=== PATIENT | female | born 1945 | race Caucasian/White ===

== ENCOUNTER 2025-09-23 08:14 | Emergency (ER) | payer OTHER, SELFPAY ==
[2025-09-23 08:29] VITALS: BP 173/91; PULSE 74; RESP 18; TEMP 36.8; O2SAT 98; BMI 28.8
[2025-09-23 08:43] VITALS: BP 173/91; PULSE 57; O2SAT 98
[2025-09-23 08:59] LABS: Glucose Urine UA Negative (Normal); Nitrate Urine Negative (Negative); Specific Gravity, Urine 1.007 (1.005-1.030)
[2025-09-23 09:04] LABS: Add Urine Microscopic? YES
--- NOTE | 2025-09-23 09:15 | US_ITS ---
WS: [id number] RIGHT UPPER QUADRANT ULTRASOUND HISTORY: RuQ abd pain COMPARISON: None available. Liver: 11.9 cm in length. Normal size liver and echogenicity. No bile duct dilatation or mass. Portal Vein: Normal hepatopetal flow with monophasic waveform. Gallbladder: No distended gallbladder. There is an echogenic focus adjacent and inseparable from the gallbladder. Favor this is probably contents within the duodenal C-loop. No definite stone identified. CBD: 0.3 cm Pancreas: Normal size and echogenicity. Right kidney: 7.3 cm in length. Mild atrophy. No hydronephrosis. Aorta and IVC: Unremarkable abdominal aorta and IVC. No ascites. US/US gall bladder [id number] IMPRESSION: 1. Normally distended gallbladder with no wall thickening or pericholecystic f luid. 2. There is a hyper echoic focus near the gallbladder wall. Favor this is prob ably within the GI tract. If patient's RIGHT upper quadrant pain continues cons ider follow-up gallbladder ultrasound in 3 to 4 weeks. 3. No bile duct dilatation. 4. Mild RIGHT renal atrophy.
[2025-09-23 09:16] LABS: Hematocrit 44.4 % (36-47); Hemoglobin 14.70 g/dL (11.27-16.99); Mean Corpuscular HGB Conc 33.1 g/dL (30-55); Mean Corpuscular Hemoglobin 30.1 pg (27-33); Mean Corpuscular Volume 91.0 fl (85-98); Nucleated Red Blood Cells % 0 %; Platelet Count 274 10^3/cmm (157-399); Red Blood Count 4.88 10^6/uL (3.85-5.65); White Blood Count 6.01 10^3/uL (3.29-11.43)
[2025-09-23] MEDS: morphine 4 mg/mL SDV 1 mL IVP (09:37)
[2025-09-23] MEDS: ondansetron 2 mg/ML SDV 2 mL 4 MG IVP (09:37)
[2025-09-23 09:39] LABS: Alanine Aminotransferase 13 U/L (0-33); Albumin Level 4.1 g/dL (3.5-5.2); Alkaline Phosphatase 97 U/L (35-105); Blood Urea Nitrogen 18 mg/dL (8-23); Calcium 9.0 mg/dL (8.5-10.5); Carbon Dioxide 23 mmol/L (22-29); Chloride 105 mmol/L (98-107); Globulin 2.9 g/dL (1.3-4.6); Glucose 89 mg/dL (65-115); Lipase 38 U/L (13-60); Osmolality Calculated 291 mOsm/kg (285-295); Sodium 140 mmol/L (136-145); Total Protein 7.0 g/dL (6.6-8.7)
[2025-09-23 09:43] LABS: Anion Gap 16.5 (5-19); Aspartate Amino Transferase 24 U/L (0-32); Potassium 4.5 mmol/L (3.5-5.1)
--- NOTE | 2025-09-23 09:52 | W.ED.ABDPA2 ---
HPI - Abdominal Pain General: Chief Complaint: Abdominal Pain Stated Complaint: R Upper ABD Pain Time Seen by Provider: 09/23/25 08:27 History of Present Illness: 79-year-old female who presents to the emergency room complaining of right upper quadrant pain intermittently for the last 2 weeks it is very nauseous but not had any vomiting. No diarrhea no acholic stools no hematemesis coffee-ground emesis. She denies any dysuria urgency or frequency no previous abdominal surgeries. She has not noticed anything that seems to exacerbate it or relieves it Associated Symptoms: Reports nausea; Denies chills, coffee ground emesis, dysuria, fever(s), hematochezia, hematemesis, melena and vomiting Related Data Home Medications ?Medication ?Instructions ?Recorded ?Confirmed flecainide 50 mg tablet 50 mg PO BID 09/23/25 09/23/25 losartan 25 mg tablet 25 mg PO QPM 09/23/25 09/23/25 Previous Rx's ?Medication ?Instructions ?Recorded amoxicillin 875 mg-potassium 1 tab PO BID #14 tabs 09/23/25 clavulanate 125 mg tablet hydrocodone 5 mg-acetaminophen 325 1 tab PO Q6H PRN pain #15 tabs 09/23/25 mg tablet promethazine 25 mg tablet 25 mg PO Q6H PRN nausea and 09/23/25 vomiting #20 tabs Allergies Allergy/AdvReac Type Severity Reaction Status Date / Time No Known Allergies Allergy Verified 09/23/25 08:37 Review of Systems Const: Denies: fever(s) or chills Card: Denies: chest pain Resp: Denies: dyspnea GI: Reports: abdominal pain and nausea; Denies: vomiting, hematemesis, coffee ground emesis, hematochezia or melena : Denies: dysuria, urinary frequency or urinary urgency Musc: Denies: neck pain or back pain Skin/Breast: Denies: rash Physical Exam Const: COMMON NORMALS: no acute distress GENERAL APPEARANCE: cooperative and comfortable ORIENTATION/CONSCIOUSNESS: Yes awake, Yes oriented to person, Yes oriented to place and Yes oriented to time HENMT: COMMON NORMALS: normocephalic, atraumatic and hearing grossly normal bilaterally HEAD & SCALP: normocephalic and atraumatic Resp: COMMON NORMALS: normal respiratory effort, No retractions, No use of accessory muscles and clear to auscultation bilaterally AUSCULTATION: clear to auscultation bilaterally Cardio: COMMON NORMALS: regular rate, regular rhythm and No murmurs present (Cardio) RATE: regular rate RHYTHM: regular rhythm GI: COMMON NORMALS: No hepatosplenomegaly present AUSCULTATION: Yes normoactive bowel sounds PALPATION: Yes Tenderness to palpation present (GI) Details: RUQ, No Guarding due to palpation present (GI) and Yes No hepatosplenomegaly present Extremity: COMMON NORMALS: normal to inspection, capillary refill normal, no clubbing, cyanosis or edema, no calf tenderness and no pedal edema Neuro: SENSORIUM/ORIENTATION: Yes oriented to person, Yes oriented to place and Yes oriented to time Skin: COMMON NORMALS: no rashes or lesions noted GENERAL SKIN EXAM: no rashes or lesions noted Course Vital Signs: Vital signs: Vital Signs Temperature 98.2 F 09/23/25 08:29 Pulse Rate 58 L 09/23/25 11:39 Respiratory Rate 18 09/23/25 08:29 Blood Pressure 144/59 09/23/25 11:39 Pulse Oximetry 97 09/23/25 11:39 Oxygen Delivery Me thod Room Air 09/23/25 10:26 MDM - Abdominal Pain Medical Decision Making Medical decision making Social determinants: None I reviewed the patient's medical record. I reviewed the patient's current home meds. Alternate historians: None Differential diagnosis: Acute cholecystitis, biliary colic, colitis, peptic ulcer disease, pyelonephritis, nephrolithiasis Lab Review: Labs reviewed on the chart CBC normal creatinine mildly elevated liver functions normal Imaging:Cholelithiasis without signs of cholecystitis no significant gallbladder wall no common bile duct dilation Assessment of risk Level of risk: Moderate Hospitalization considerations: No acute cholecystitis not require hospitalization at this time Reexamination: Improved with medications Assessment and plan: Dietary suggestions given to avoid biliary colic. [place] home soon recommend they get the old records contact her primary care doctor for referral to general surgery. If has uncontrolled pain return to the nearest emergency room given hydrocodone and promethazine reviewed dietary suggestions to avoid biliary colic Lab Data 09/23/25 09:08 09/23/25 09:08 Labs/Radiology: Radiology Impressions Gallbladder Ultrasound 09/23/25 09:15 IMPRESSION: 1. Normally distended gallbladder with no wall thickening or pericholecystic fluid. 2. There is a hyper echoic focus near the gallbladder wall. Favor this is probably within the GI tract. If patient's RIGHT upper quadrant pain continues consider follow-up gallbladder ultrasound in 3 to 4 weeks. 3. No bile duct dilatation. 4. Mild RIGHT renal atrophy. Laboratory Results WBC 6.01 10^3/uL (3.29-11.43) 09/23/25 09:08 RBC 4.88 10^6/uL (3.85-5.65) 09/23/25 09:08 Hgb 14.70 g/dL (11.27-16.99) 09/23/25 09:08 Hct 44.4 % (36-47) 09/23/25 09:08 MCV 91.0 fl (85-98) 09/23/25 09:08 MCH 30.1 pg (27-33) 09/23/25 09:08 MCHC 33.1 g/dL (30-55) 09/23/25 09:08 RDW 13.3 % (12.1-15.1) 09/23/25 09:08 Plt Count 274 10^3/cmm (157-399) 09/23/25 09:08 MPV 8.5 fL (7.4-10.4) 09/23/25 09:08 Neut % (Auto) 68.5 % 09/23/25 09:08 Lymph % (Auto) 19.1 % 09/23/25 09:08 Sharkey % (Auto) 8.2 % 09/23/25 09:08 Eos % (Auto) 3.2 % 09/23/25 09:08 Baso % (Auto) 0.8 % 09/23/25 09:08 Neut # (Auto) 4.12 10^3/uL (1.8-7.7) 09/23/25 09:08 Lymph # (Auto) 1.2 10^3/uL (0.8-4.8) 09/23/25 09:08 Sharkey # (Auto) 0.5 10^3/uL (0.2-0.9) 09/23/25 09:08 Eos # (Auto) 0.2 10^3/uL (0.0-0.8) 09/23/25 09:08 Baso # (Auto) 0.1 10^3/uL (0.0-0.1) 09/23/25 09:08 Nucleated RBC % (auto) 0 % 09/23/25 09:08 Nucleated RBCs # 0.0 /100WBC 09/23/25 09:08 Sodium 140 mmol/L (136-145) 09/23/25 09:08 Potassium 4.5 mmol/L (3.5-5.1) 09/23/25 09:08 Chloride 105 mmol/L (98-107) 09/23/25 09:08 Carbon Dioxide 23 mmol/L (22-29) 09/23/25 09:08 Anion Gap 16.5 (5-19) 09/23/25 09:08 BUN 18 mg/dL (8-23) 09/23/25 09:08 Creatinine 1.3 mg/dL (0.5-0.9) H 09/23/25 09:08 GFR Calculation Not Reportable 09/23/25 09:08 Glucose 89 mg/dL (65-115) 09/23/25 09:08 Calculated Osmolality 291 mOsm/kg (285-295) 09/23/25 09:08 Calcium 9.0 mg/dL (8.5-10.5) 09/23/25 09:08 Total Bilirubin 0.7 mg/dL (0.15-1.2) 09/23/25 09:08 AST 24 U/L (0-32) 09/23/25 09:08 ALT 13 U/L (0-33) 09/23/25 09:08 Alkaline Phosphatase 97 U/L (35-105) 09/23/25 09:08 Total Protein 7.0 g/dL (6.6-8.7) 09/23/25 09:08 Albumin 4.1 g/dL (3.5-5.2) 09/23/25 09:08 Globulin 2.9 g/dL (1.3-4.6) 09/23/25 09:08 Lipase 38 U/L (13-60) 09/23/25 09:08 Urine Color Yellow (Yellow) 09/23/25 08:22 Urine Appearance Clear (CLEAR) 09/23/25 08:22 Urine pH 5.5 (5-7) 09/23/25 08:22 Ur Specific [place] 1.007 (1.005-1.030) 09/23/25 08:22 Urine Protein Negative (Negative) 09/23/25 08:22 Urine Glucose (UA) Negative (Normal) 09/23/25 08:22 Urine Ketones Trace (Negative) 09/23/25 08:22 Urine Blood Trace (Negative) A 09/23/25 08:22 Urine Nitrate Negative (Negative) 09/23/25 08:22 Urine Bilirubin Negative (Negative) 09/23/25 08:22 Urine Urobilinogen 0.2 mg/dL (Negative) 09/23/25 08:22 Ur Leukocyte Esterase Trace (Negative) A 09/23/25 08:22 Urine RBC 0-2 /hpf (0-2) 09/23/25 08:22 Urine WBC 0-5 /hpf (0-5) 09/23/25 08:22 Ur Squamous Epith Cells 0-5 /hpf (0-5) 09/23/25 08:22 Amorphous Sediment Not Reportable 09/23/25 08:22 Urine Bacteria None seen /hpf (NONE) 09/23/25 08:22 Hyaline Casts 0.40 /lpf 09/23/25 08:22 All radiology interpretation(s) finalized by discharge Discharge Plan Discharge Patient Disposition: Home Clinical Impression: Cholelithiasis, Biliary colic Condition: Stable Prescriptions: New amoxicillin-pot clavulanate 875-125 mg tablet 1 tab PO BID Qty: 14 0RF hydrocodone-acetaminophen 5-325 mg tablet 1 tab PO Q6H PRN (Reason: pain) Qty: 15 0RF promethazine 25 mg tablet 25 mg PO Q6H PRN (Reason: nausea and vomiting) Qty: 20 0RF No Action flecainide 50 mg tablet 50 mg PO BID losartan 25 mg tablet 25 mg PO QPM Discharge Orders: Discharge ED (Routine); Ordered 09/23/25 Ordered By: Chalino Yoder Discharge Diet: As Directed Discharge Activity: Increase activity as tolerated Patient Instructions: Biliary Colic (ED), Gallstones (ED), Abdominal Pain (ED), Opioid Safety, Pain Management, Patient Portal & Billy Instructions Activity Restrictions/Additional Instructions: Thank you for choosing [facility] for your healthcare needs today. It is very important that you follow up as instructed or that you return to the Emergency Department should you have concerns or if your condition changes or worsens in any way. Emergency department visits are focused on emergent conditions, in some cases you may require further evaluation on an outpatient basis. You were seen in the emergency room with complaints right upper quadrant abdominal pain. Your liver enzymes white count normal however you do have gallstones. There is no sign of obstruction or infection at this time. Based on your history and symptoms likely that you will eventually need to have your gallbladder out. When you return home recommend that you follow-up with your primary care doctor as soon as you are able. You can use the address and phone numbers on this discharge paperwork to get your old records from this visit. As we discussed avoid fatty foods fried foods red meats dairy products tomato-based products citrus fruits as these are all things are likely to aggravate your gallbladder symptoms (Please note that included in your discharge packet is information concerning opioid safety and pain management. This information is given to all patients were discharged from the ER regardless of their discharge diagnosis or the medicines they usually take or are prescribed.) Print Language: Greenlandic Coding Level of Care Code ED Recruiting Team Lead for Siri Whitmore
[2025-09-23 10:26] VITALS: BP 144/59; PULSE 59; O2SAT 97
[2025-09-23 11:39] VITALS: BP 144/59; PULSE 58; O2SAT 97
== END 2025-09-23 11:39 | disposition home or self-care (01) ==
PROVIDERS: Emergency Provider Family Medicine
DX: K80.70 Calculus of gallbladder and bile duct without cholecystitis without obstruction (principal)
CPT/HCPCS: 36415; 76705; 80053; 81001; 83690; 85025; 96374; 96375; 99285; J2270; J2405